=== PATIENT | female | born 1985 | race Two or more races ===

== ENCOUNTER 2021-06-25 13:58 | Emergency (ER) | payer OTHER ==
[~2021-06-25] VITALS: Ht 152.4 cm; Wt 72.6 kg
[2021-06-25 16:52] LABS: Basophils # (auto) 0 10 ^3/uL (0-0.2); Basophils % (auto) 0.4 % (0.0-2.0); Eosinophils # (auto) 0 10 ^3/uL (0-0.8); Eosinophils % (auto) 0.3 % (0.0-7.0); Hematocrit 40.4 % (36.0-46.0); Hemoglobin 13.3 g/dL (12.2-16.2); Lymphocytes # (auto) 1.8 10 ^3/uL (0.4-5.4); Mean Corpuscular Hemoglobin 29.9 pg (28.0-32.0); Mean Corpuscular Volume 90.6 fL (80.0-100.0); Monocytes # (auto) 0.7 10 ^3/uL (0-1.3); Monocytes % (auto) 9.6 % (0.0-12.0); Neutrophils # (auto) 4.4 10 ^3/uL (1.6-8.6); Neutrophils % (auto) 63.7 % (37.0-80.0); Nucleated Red Blood Cells % 0.1 %; Red Blood Cells 4.46 10^6/uL (4.0-5.20); Red Cell Distribution Width 13.2 % (11.8-14.3)
[2021-06-25 20:55] VITALS: BP 128/75
== END 2021-06-25 20:58 | disposition home or self-care (01) ==
LOC: EDBD 13:58 → ER 13:58
DX: O20.0 Threatened abortion (principal); Z3A.01 Less than 8 weeks gestation of pregnancy; F12.10 Cannabis abuse, uncomplicated
CPT/HCPCS: 36415; 76801; 76817; 84702; 85025